=== PATIENT | male | born 1965 | race Caucasian/White ===

== ENCOUNTER 2016-11-06 21:24 | Emergency (ER) | payer MEDICAID, MEDICARE ==
[2016-11-06] MEDS ORDERED: OPTIRAY 350 100 ML VIAL HMH IV ONE (21:25)
[2016-11-06] MEDS ORDERED: ASPIRIN 81 MG CHEW TAB ONE (21:46)
== END 2016-11-07 03:24 | disposition home or self-care (01) ==
LOC: ER 21:24
DX: R07.2 Precordial pain (principal)
CPT/HCPCS: 36415 ×2; 71010 ×2; 71260 ×2; 80053 ×2; 82550 ×2; 83735 ×2; 83880 ×2; 84484 ×2; 85025 ×2; 85610 ×2; 85730 ×2; 93005 ×2; Q9967

== ENCOUNTER 2016-11-09 20:29 | Emergency (ER) | payer MEDICARE ==
[2016-11-09] MEDS ORDERED: ASPIRIN 81 MG CHEW TAB ONE (20:57)
[2016-11-09] MEDS ORDERED: KETOROLAC 30 MG/ML VIAL ONE (22:47)
== END 2016-11-10 01:40 | disposition home or self-care (01) ==
LOC: ER 20:29
DX: R07.89 Other chest pain (principal)
CPT/HCPCS: 36415 ×2; 71010 ×2; 80053 ×2; 82550 ×2; 83735 ×2; 84484 ×2; 85025 ×2; 85610 ×2; 85730 ×2; 93005 ×2; 96374 ×2; 99284; J1885